=== PATIENT | female | born 1955 | race Two or more races ===

== ENCOUNTER 2017-04-22 10:11 | Outpatient (CLI) | payer OTHER ==
[2017-05-18] MEDS ORDERED: SIMVASTATIN40 MG PO (09:09)
[2017-05-18] MEDS ORDERED: SYNTHROID137 MCG PO (09:09)
[2017-05-18] MEDS ORDERED: PROTONIX40 MG PO (09:10)
[2017-05-18] MEDS ORDERED: GABAPENTIN100 MG PO (09:10)
[2017-05-18] MEDS ORDERED: EVISTA60 MG PO (09:10)
[2017-05-18] MEDS ORDERED: ZYRTEC10 MG PO (09:10)
[2017-05-18] MEDS ORDERED: FLONASE16 GM (09:11)
[2017-05-18] MEDS ORDERED: FIORICET PO (09:11)
[2017-05-26] MEDS ORDERED: SURFAK240 MG PO (10:54)
[2017-05-26] MEDS ORDERED: PERCOCET 5-3251 EACH PO (10:54)
[2017-05-26] MEDS ORDERED: POLY119PG PO (10:54)
== END 2017-04-22 10:14 | disposition home or self-care (01) ==
LOC: SONOGRAMA 10:11
DX: M75.111 Incomplete rotator cuff tear or rupture of right shoulder, not specified as traumatic (principal)

== ENCOUNTER → 2017-04-22 10:16 | Outpatient (CLI) | payer OTHER | END | disposition home or self-care (01) | LOC: RAD 10:16 | DX: M51.36 Other intervertebral disc degeneration, lumbar region (principal); M51.37 Other intervertebral disc degeneration, lumbosacral region; M54.2 Cervicalgia; M54.5 Low back pain ==

== ENCOUNTER 2017-05-19 07:30 | Outpatient (CLI) | payer OTHER ==
[~2017-05-19 07:30] MED LIST: EVISTA60 MG PO; FIORICET PO; FLONASE16 GM; GABAPENTIN100 MG PO; PROTONIX40 MG PO; SIMVASTATIN40 MG PO; SYNTHROID137 MCG PO; ZYRTEC10 MG PO
== END 2017-05-20 05:53 | disposition home or self-care (01) ==
LOC: MRI 07:30
DX: K80.10 Calculus of gallbladder with chronic cholecystitis without obstruction (principal)
CPT/HCPCS: 74181

== ENCOUNTER → 2017-05-26 | Day surgery (SDC) | payer OTHER ==
[~2017-05-26] MED LIST changes: +PERCOCET 5-3251 EACH PO; +POLY119PG PO; +SURFAK240 MG PO
== END | disposition home or self-care (01) ==
LOC: ADM 05-18 07:00 → CIR.AMB 06:40
DX: K80.10 Calculus of gallbladder with chronic cholecystitis without obstruction (principal); K42.9 Umbilical hernia without obstruction or gangrene; K43.2 Incisional hernia without obstruction or gangrene